=== PATIENT | male | born 1990 | race African-American/Black ===

== ENCOUNTER 2017-03-17 20:17 | Emergency (ER) | payer SELFPAY ==
[~2017-03-17] VITALS: Ht 175.3 cm; Wt 59.0 kg
[2017-03-17] VITALS (24 sets, daily range): BP systolic 115–136; BP diastolic 74–98
[2017-03-17] MEDS ORDERED: Thiamine HCl 100 MG in D5W 55 ML IVPB ONE (20:30)
[2017-03-17] MEDS ORDERED: DiphenhydrAMINE 50mg/ml Inj IM ONE (20:30)
[2017-03-17] MEDS ORDERED: Haloperidol 5mg/ml Inj IM ONE (20:30)
--- NOTE | 2017-03-17 21:14 | Emergency Room Report ---
History of Present Illness General Chief Complaint: Altered Mental Status Source: EMS (Jeremi Whitehead) Present Illness HPI This is 26-year-old male police found him lying in the street. The patient was brought into the hospital for further evaluation. The patient denies any suicidal thoughts. The patient appear to be somewhat confused to police and EMS. The patient had prior history depression. He takes SSRI for depression. (Jeremi Whitehead) Allergies: Coded Allergies: No Known Allergies (Unverified , 03/17/17) Patient History Reviewed Nursing Documentation: PMH: Agreed, PSxH: Agreed (Jeremi Whitehead) Review of Systems All Other Systems: limited - by poor cooperation (Jeremi Whitehead) Physical Exam Vital Signs Date Time Temp Pulse Resp B/P (MAP) Pulse Ox O2 Delivery O2 Flow Rate FiO2 03/17/17 20:12 88 16 122/87 98 Room Air 03/17/17 20:21 99.1 Sp02 EP Interpretation: reviewed, normal General Appearance: normal inspection, well appearing, no apparent distress, alert, GCS 15 Head: atraumatic ENT: normal ENT inspection, hearing grossly normal, normal voice Neck: normal inspection, full range of motion, supple, no bony tend Respiratory: normal inspection, lungs clear, normal breath sounds, no respiratory distress, no retraction, no wheezing Cardiovascular #1: regular rate, rhythm, no edema Gastrointestinal: normal inspection, normal bowel sounds, non tender, soft, no guarding, no hernia Genitourinary: no CVA tenderness Musculoskeletal: normal inspection, back normal, normal range of motion Neurologic: normal inspection, alert, responsive, speech normal, oriented - to name and place Psychiatric: no suicidal/homicidal ideation Skin: normal inspection, normal color, no rash (Jeremi Whitehead) Medical Decision Making Diagnostic Impression: Primary Impression: Altered mental status Qualified Codes: R40.4 - Transient alteration of awareness Additional Impressions: Behavioral disorder Paranoid ideation ER Course Patient presented for altered mental status. Differential diagnoses include substance abuse, alcohol intoxication, psychosis, bipolar disorder, depression, malingering. Because of complexity of patient's case laboratory testing and imaging studies were ordered. The patient was given Haldol as well as Benadryl. Patient was placed in restraints for agitation initially. Patient was endorsed to Dr. Baird pending laboratory testing. (Jeremi Whitehead) ER Course Please see above workup by Dr. [place]. The patient is examined by me in the morning. He's paranoid and anxious. He is delusional taking that I belong to ice his. He will not tell me what medications he takes at home. He R. he received Haldol Benadryl and Ativan last night. He agreed to take oral medications this morning will be given a dose of Abilify, and Ativan. He was improved with medications. Awaiting consideration for placement versus family evaluation. Care assumed by Dr. Galvan. (Cliff Rodriguez M.D.) ER Course 26-year-old male Was found walking on the street yesterday Has been in the emergency room for 20 hours pending PET eval Patient's brother came to the emergency room, states that patient has a habit of walking aimlessly in the streets at times, no formal diagnosis of depression , however patient has seen a psychiatrist in the past There has never been any suicidal or homicidal behavior. When speaking to patient currently patient is ANO x4. Patient is denying any depressive thoughts, suicidal or homicidal ideation. Patient states that yesterday he was "pondering life"wasn't sure if he wanted to go to his friend's house, so was just wandering the streets. Patient has been stable during ED stay, has been ambulating to and from the bathroom without difficulty, has been conversing appropriately with his brother Brother states that this is his baseline mental status At this time patient is not a harm to himself or others, I will be discharging the patient. Patient will be going home with his brother. Strict return precautions given to patient and brother such as depressive thoughts, suicidal or homicidal ideation. They verbalized understanding and agree with the plan. Patient is to followup with a psychiatrist up in one week (Michael Galvan M.D.) Last Vital Signs Date Time Temp Pulse Resp B/P (MAP) Pulse Ox O2 Delivery O2 Flow Rate FiO2 03/17/17 21:03 69 22 130/89 100 Room Air 03/17/17 20:21 99.1 Status: improved (Jeremi Whitehead) Last Vital Signs Date Time Temp Pulse Resp B/P (MAP) Pulse Ox O2 Delivery O2 Flow Rate FiO2 03/18/17 17:50 98.1 87 18 107/72 97 Room Air Status: improved (Cliff Rodriguez M.D.) Disposition: HOME, SELF-CARE Condition: Improved Jeremi Whitehead Mar 17, 2017 21:14 Cliff Rodriguez M.D. Mar 18, 2017 07:01 Michael Galvan M.D. Mar 18, 2017 17:45
[2017-03-17] MEDS ORDERED: Thiamine HCl 100mg/ml 2 ml Inj ONE (21:19)
[2017-03-17 21:39] LABS: BASOPHILS % (AUTO) 1.9 % (0.0-2.0); EOSINOPHILS % (AUTO) 0.1 % (0.0-3.0); LYMPHOCYTES % (AUTO) 15.1 % (20.0-45.0); MEAN CORPUSCULAR HEMOGLOBIN 30.4 PG (27.0-31.0); MEAN CORPUSCULAR HGB CONC 33.2 G/DL (32.0-36.0); MEAN CORPUSCULAR VOLUME 92 FL (80-99); MEAN PLATELET VOLUME 6.2 FL (6.5-10.1); MONOCYTES % (AUTO) 14.4 % (1.0-10.0); NEUTROPHILS % (AUTO) 68.6 % (45.0-75.0); PLATELET COUNT 290 K/UL (150-450); RED BLOOD COUNT 4.52 M/UL (4.70-6.10); RED CELL DISTRIBUTION WIDTH 10.6 % (11.6-14.8); WHITE BLOOD COUNT 7.8 K/UL (4.8-10.8)
[2017-03-17 21:57] LABS: ALANINE AMINOTRANSFERASE 11 U/L (3-41); ALBUMIN/GLOBULIN RATIO 1.6 (1.0-2.7); ALCOHOL < 10 mg/dL; ANION GAP 15 (5-15); ASPARTATE AMINO TRANSFERASE 23 U/L (5-40); CALCIUM 9.9 mg/dL (8.6-10.2); CARBON DIOXIDE 26 mEQ/L (20-30); CHLORIDE 98 mEQ/L (98-107); GLOMERULAR FILTRATION RATE > 60 mL/min (>60); HEMOLYSIS 28; POTASSIUM 3.8 mEQ/L (3.4-4.9); SODIUM 139 mEQ/L (135-145); TOTAL PROTEIN 8.1 g/dL (6.6-8.7)
[2017-03-17 22:35] LABS: BILIRUBIN,DIRECT 0.4 mg/dL (0.1-0.3)
[2017-03-18] VITALS (24 sets, daily range): BP systolic 102–134; BP diastolic 64–86
[2017-03-18] MEDS ORDERED: LORazepam 1mg tab ORAL ONE (07:00)
--- NOTE | 2017-03-18 09:14 | Diagnostic Imaging Report ---
Indication: Altered mental status Comparison: None Technique: Contiguous helical CT images through the brain was performed without intravenous contrast. Axial, coronal and sagittal reconstructions were reformatted. CT dose: Total DLP 1372 mGycm, CTDI volume 70.4 mGy Findings: There is no acute intracranial hemorrhage or infarct. No mass, mass effect or midline shift is identified. Ventricles and sulci are within normal limits. No extra-axial fluid collections are seen. Bony calvarium is intact. Mastoid air cells and visualized paranasal sinuses are clear. Impression: No acute intracranial abnormalities. The CT scanner at [facility] is accredited by the [employer] and the scans are performed using protocols designed to limit radiation exposure to as low as reasonably achievable to attain images of sufficient resolution adequate for diagnostic evaluation.
== END 2017-03-18 17:50 | disposition home or self-care (01) ==
LOC: EDBD 20:17 → EMR 21:25
DX: R41.82 Altered mental status, unspecified (principal); F91.9 Conduct disorder, unspecified; F22 Delusional disorders
CPT/HCPCS: 36415; 70450; 80053; 80300; 82248; 85025; 96365; 96372; 99285; G0480; J1200; J1630; 80329; 99284